=== PATIENT | male | born 1990 | race Caucasian/White ===

== ENCOUNTER 2016-10-30 04:49 | Emergency (ER) | payer MEDICAID, OTHER ==
[~2016-10-30] VITALS: Ht 167.6 cm; Wt 55.3 kg
[2016-10-30] MEDS ORDERED: FLUORESCEIN SODIUM OPHTH 1 EA STRIP ONE (05:02)
[2016-10-30] MEDS ORDERED: TETRACAINE HCL/PF 0.5% UD 2 ML BOTTLE ONE (05:02)
--- NOTE | 2016-10-30 05:05 | NUR ---
PT BIB SELF FROM HOME, PT C/O RIGHT EYE PAIN X 7 HOURS. PT AOX3 RR EVEN AND UNLABORED. NO SOB NOTED. NAD NOTED. NO NVD AT THIS TIME. PT WAITING FOR MD WAN.
--- NOTE | 2016-10-30 05:42 | NUR ---
DR. GUPTA AT BEDSIDE FOR EYE EXAM.
[2016-10-30] MEDS ORDERED: TDAP [DIPH/PERTUSSIS/TET] 0.5 ML VIAL IM ONE ×2 (06:12→06:30)
[2016-10-30] MEDS ORDERED: GENTAMICIN OPTH SOLN 0.3% 5 ML BOTTLE ONE (06:12)
[2016-10-30] MEDS ORDERED: GENTAMICIN OPTH SOLN 0.3% 5 ML BOTTLE OP ONE (06:30)
--- NOTE | 2016-10-30 06:40 | NUR ---
Patient discharged to home in stable condition. Written and verbal after care instructions given. Patient verbalizes understanding of instruction. pt ambulatory with a steady gait
[2016-10-30 06:41] VITALS: BP 116/74
== END 2016-10-30 06:42 | disposition home or self-care (01) ==
LOC: ER 04:50
DX: S05.01XA Injury of conjunctiva and corneal abrasion without foreign body, right eye, initial encounter (principal); Z91.02 Food additives allergy status; X58.XXXA Exposure to other specified factors, initial encounter; Y93.89 Activity, other specified; Y92.89 Other specified places as the place of occurrence of the external cause; Y99.8 Other external cause status
CPT/HCPCS: 90471; 90715; 99283; A4606; Z7610

== ENCOUNTER 2016-11-30 21:50 | Emergency (ER) | payer MEDICAID ==
--- NOTE | 2016-11-30 22:01 | NUR ---
CALLED PT X3. NO RESPONSE. PER ADMITTING PT LEFT.
== END 2016-11-30 22:02 | disposition left against medical advice (07) ==
LOC: ER 21:56
DX: Z53.21 Procedure and treatment not carried out due to patient leaving prior to being seen by health care provider (principal)

== ENCOUNTER 2018-06-03 19:14 | Emergency (ER) | payer MEDICAID ==
[~2018-06-03] VITALS: Ht 170.2 cm; Wt 61.2 kg
--- NOTE | 2018-06-03 19:58 | NUR ---
BIBS. C/O "HAVING NAUSEA/VOMITING DIARRHEA FOR ABOUT A WEEK NOW, WONT GO AWAY" PTAOX4. AMBULATORY W.STEADY GAIT. -SOB -DIZZY. AT BEDSIDE
[2018-06-03] MEDS ORDERED: ONDANSETRON HCL/PF 4 MG/2 ML VIAL ONE (20:12)
[2018-06-03] MEDS: ONDANSETRON HCL/PF 4 MG/2 ML VIAL IVP ONE (20:22)
[2018-06-03] MEDS: IV NS 0.9% 1,000 ML BAG IV ONE (20:22)
[2018-06-03 20:34] LABS: BASOPHILS # (AUTO) 0.1 /CMM (0.0-0.2); BASOPHILS % (AUTO) 0.8 % (0.0-2.0); EOSINOPHILS % (AUTO) 3.9 % (0.0-6.0); HEMATOCRIT 40 % (39-51); HEMOGLOBIN 13.5 g/dL (13.5-17.5); LYMPHOCYTES # (AUTO) 1.9 /CMM (0.8-4.8); LYMPHOCYTES % (AUTO) 23.1 % (20.0-44.0); MEAN CORPUSCULAR HGB CONC 34 g/dl (31.0-36.0); MEAN CORPUSCULAR VOLUME 94 fL (80-96); MONOCYTES # (AUTO) 0.5 /CMM (0.1-1.30); MONOCYTES % (AUTO) 5.6 % (2.0-12.0); NEUTROPHILS # (AUTO) 5.5 /CMM (1.8-8.9); NEUTROPHILS % (AUTO) 66.6 % (43.0-81.0); PLATELET COUNT (AUTO) 303 /CMM (150-450); RED BLOOD CELL COUNT(AUTO) 4.25 MIL/uL (4.5-6.0); WHITE BLOOD COUNT (AUTO) 8.2 K/uL (4.3-11.0)
[2018-06-03 20:36] LABS: APPEARANCE,URINE Clear (CLEAR); BILIRUBIN,URINE Negative (NEGATIVE); BLOOD, URINE Negative Ery/uL (NEGATIVE); COLOR,URINE Yellow (YELLOW); KETONES,URINE Negative (NEGATIVE); LEUKOCYTE ESTERASE ,URINE Negative (NEGATIVE); NITRITE, URINE Negative (NEGATIVE); PROTEIN,URINE Negative (NEGATIVE); UGLUCOSE Negative (NEGATIVE); UROBILINOGEN,URINE 0.2 EU/dL (0.2)
[2018-06-03 20:41] LABS: CALCIUM, SERUM 8.6 mg/dL (8.5-10.1); POTASSIUM 3.8 mmol/L (3.5-5.1)
[2018-06-03 20:47] LABS: ALBUMIN 3.7 g/dL (3.4-5.0); BILIRUBIN,DIRECT 0.1 mg/dL (0.0-0.2); BILIRUBIN,TOTAL 0.2 mg/dL (0.2-1.0); TOTAL PROTEIN, SERUM 7.1 g/dL (6.4-8.2)
[2018-06-03 22:30] VITALS: BP 119/76
== END 2018-06-03 22:30 | disposition home or self-care (01) ==
LOC: ER 19:19
DX: R11.0 Nausea (principal); R19.7 Diarrhea, unspecified; F41.9 Anxiety disorder, unspecified; F10.10 Alcohol abuse, uncomplicated; Y90.9 Presence of alcohol in blood, level not specified; Z91.018 Allergy to other foods
CPT/HCPCS: 36415; 80048; 80076; 81001; 83690; 85025; 96361; 96374; 99283; J2405; J7030; 81000-TC